=== PATIENT | male | born 1960 | race Caucasian/White ===

== ENCOUNTER 2017-07-15 12:46 | Emergency (ER) | payer BC, SELFPAY ==
[2017-07-15] VITALS (7 sets, daily range): BP systolic 107–117; BP diastolic 73–88; PULSE 56–72; RESP 15–18; TEMP 37; O2SAT 95–98; BMI 25.2
--- NOTE | 2017-07-15 14:07 | CT_ITS ---
STUDY: CTA CHEST REASON FOR EXAM: Male, 57 years old. Shortness of breath. History of pulmonary embolism. RADIATION DOSAGE (If Supplied By Facility): CTDIvol = ( 11.77 ) mGy, DLP = ( 343.50 ) mGycm TECHNIQUE: The examination was performed with the intravenous administration of 100 ml of Isovue 370 contrast material. Post-processing of the angiographic images was performed, with multiplanar reformation and 3D reconstruction. Individualized dose optimization techniques were used for this CT. COMPARISON: 09/15/2015 FINDINGS: Normal enhancement of the main pulmonary artery and right and left pulmonary arteries. Normal enhancement of the bilateral peripheral pulmonary arteries. There is no demonstrated pulmonary embolism. Normal thoracic aorta and visualized great vessels. There is no demonstrated aortic dissection. Normal heart and pericardium. Normal mediastinum. Normal hilar regions. Normal visualized trachea and bronchi. The lungs are well expanded. Mild bibasilar airspace disease is noted, likely mild atelectasis and/or scarring. Similar in appearance to the exam from 2015. No acute airspace disease. No evidence of pulmonary nodules or masses. Normal pleura. Normal chest wall structures. Normal osseous structures. Normal visualized upper abdomen. CT/CTA Chest W/WO Contrast IMPRESSION: Normal CTA chest examination, without a demonstrated pulmonary embolism or arterial dissection. Stable bibasilar scarring. No acute airspace disease. Electronically Signed: Cristo Hager DO at 16:10 EST Tel , Service support ,
--- NOTE | 2017-07-15 14:08 | EKG12_ITS ---
Test Reason : SOB Blood Pressure : / mmHG Vent. Rate : 065 BPM Atrial Rate : 065 BPM P-R Int : 160 ms QRS Dur : 090 ms QT Int : 402 ms P-R-T Axes : 049 -22 021 degrees QTc Int : 418 ms Normal sinus rhythm Normal ECG Confirmed by KALYANI GUZMAN, DENNYS ([id number]), medical transcription editor SUSI ANGULO ([id number]) on 07/16/2017 2:28:10 PM Referred By: DORIE Confirmed By:DENNYS AUGUSTE MD
--- NOTE | 2017-07-15 15:16 | ED.DCSUM_ITS ---
- ER Visit Summary Date of Service: 07/15/17 Chief Complaint: Shortness of breath History of Present Illness: The patient is a 57 M with shortness of breath that started gradually over the past week. He has a history of PE. He is not currently on blood thinners and was concerned for recurrent PE. He also reports some abdominal cramping and bloating. He has a history of Crohn's disease. Physical Examination: Vital signs unremarkable. Afebrile. Nontoxic and in no acute distress. Skin appears normal. Heart regular. Lungs clear. Abdomen soft and nontender. Extremities nontender. No swelling. Test Results: EKG showed sinus rhythm at a rate of 65. No sign of acute ischemia or infarction pattern. Laboratory studies and imaging are pending at the time of this dictation. Emergency Department Course and Treatment: EKG as above. CT chest showed no evidence of PE or dissection. He has stable chronic changes. CMP, BMP, troponin unremarkable. Nothing to explain his symptoms. It also does not appear consistent with a Crohn's flare, PE, or any other cardiac abnormalities. I believe the patient is appropriate for outpatient follow-up. He should return for any new or worsening symptoms. He was given a prescription for Zofran if he should need it. Treatment Plan: As above Disposition: Discharged Impression: 1. Dyspnea 2. Abdominal pain This note was generated with [employer] dictation software. It may contain incorrect words, spelling, and punctuation that were not noted in review of the chart prior to signing ED Disposition - Plan for ED Patient: Chief Complaint: Shortness of Breath Referrals: Devon Esteban MD [Primary Care Provider] -
[2017-07-15 15:22] LABS: Absolute Lymphocyte Count 1.16 X10^3/ul (0.83-4.51); Absolute Neutrophil Count 2.9 X10^3/uL (2.0-7.7); Basophil# 0.01 X10^3/uL; Basophil% 0.2 % (0-1); Eosinophil# 0.08 X10^3/uL; Eosinophils% 1.7 % (0-5); Hematocrit 44.2 % (40-54); Hemoglobin 14.8 g/dl (13.0-16.5); Lymphocyte # 1.16 X10^3/ul (4.0); Lymphocyte % 25.1 % (19-41); Mean Corp Hgb Conc 33.5 g/gl (32-36); Mean Corpuscular Hgb 29.6 pg (27.0-32.0); Mean Corpuscular Volume 88.4 fL (80-94); Mean Platelet Vol. 10.1 fl (6.2-12.0); Monocyte# 0.45 X10^3/uL; Monocyte% 9.7 % (0-10); Neutrophil # 2.92 X10^3/uL (2.7-7.7); Neutrophil % 63.1 % (47-70); POSITIVE COUNT NO; POSITIVE DIFFERENTIAL NO; POSITIVE MORPHOLOGY NO; Platelet Count 239 K/mm3 (150-450); White Blood Count 4.6 K/mm3 (4.4-11.0)
[2017-07-15 15:28] LABS: Anion Gap 8 (5-15); BUN 19 mg/dL (7-18); Calcium,Total 8.8 mg/dL (8.5-10.1); Chloride 106 mmol/L (98-107); Creatinine, Serum 0.95 mg/dL (0.70-1.30); EST Glomerular Filtration Rate 86 mL/min (>60); Est Glom Filt Rate - Afr Amer 104 mL/min (>60); Estimated Creatinine Clearance 76.49 ml/min; Glucose 118 mg/dL (74-106); Potassium 3.6 mmol/L (3.5-5.1); Sodium Level 140 mmol/L (136-145)
[2017-07-15] MEDS: 0.9% Normal Saline 1,000 ML 1000 ML IV (15:59)
--- NOTE | 2017-07-15 16:27 | ED.DEP ---
ED Disposition - Plan for ED Patient: Chief Complaint: Shortness of Breath Instructions: Discharge Instructions for Crohn's Disease Prescriptions: Ondansetron [Zofran Odt] 4 mg PO Q8H PRN PRN #10 tab PRN Reason: Nausea Referrals: Devon Esteban MD [Primary Care Provider] -
== END 2017-07-15 17:21 | disposition home or self-care (01) ==
PROVIDERS: Emergency Provider Emergency Medicine; Family Provider Family Medicine; PCP Family Medicine
DX: R06.00 Dyspnea, unspecified (principal); R10.9 Unspecified abdominal pain; R14.0 Abdominal distension (gaseous); R11.0 Nausea; J45.909 Unspecified asthma, uncomplicated; K50.90 Crohn's disease, unspecified, without complications; Z86.711 Personal history of pulmonary embolism; Z79.899 Other long term (current) drug therapy
CPT/HCPCS: 71275; 80048; 84484; 85025; 93005; 99284; J7030; A4216

== ENCOUNTER 2018-04-03 18:36 | Emergency (ER) | payer BC, SELFPAY ==
[2018-04-03 18:36] VITALS: BP 114/85; PULSE 57; RESP 16; TEMP 36.3; O2SAT 98; BMI 25.0
--- NOTE | 2018-04-03 18:39 | RAD_ITS ---
STUDY: X-RAY - RIGHT HAND REASON FOR EXAM: Male, 58 years old. Injury and pain TECHNIQUE: Three view(s) of the hand were obtained. COMPARISON: None. FINDINGS: Bones: There are no acute osseous abnormalities. Joints: The visualized joints are unremarkable. Soft tissues: There is mild soft tissue swelling. Foreign body: None RAD/Hand Min 3 Views IMPRESSION: No acute osseous abnormalities are seen in the right hand. Electronically Signed: Samina Lucio MD at 19:44 EST Tel Direct: [phone], Service support ,
--- NOTE | 2018-04-03 19:48 | ED.DCSUM_ITS ---
- ER Visit Summary Date of Service: 04/03/18 Chief Complaint: Crush injury right hand History of Present Illness: The patient is a 58 M right hand injury a week ago at home. Crush injury between a log splitter and a log. Pain since. Using Tylenol. History of Crohn's. Came for evaluation rule out fracture. No paresthesias. Physical Examination: General: Alert and oriented ?3, no acute distress HEENT: Normocephalic, atraumatic. Moist mucosa membranes Neck: supple, nontender. Cardiovascular: Regular rate and rhythm, no murmurs Respiratory: Normal breath sounds, symmetric, no distress Abdomen: Soft, nontender, nondistended Extremities: Nontender, no edema, pulses intact ?4. Right upper extremity: There is mild swelling dorsal hand along left first and second metacarpals. No deformities. No pinpoint tenderness. Skin intact. No ecchymosis. Neuro: no focal neurological deficits. Test Results: Right hand x-ray negative for fracture. Emergency Department Course and Treatment: X-ray negative. Discussed with patient continue Tylenol monitoring symptoms. Requests work note release back to work. Treatment Plan: [] Disposition: Discharge Impression: Right hand contusion This note was generated with [employer] dictation software. It may contain incorrect words, spelling, and punctuation that were not noted in review of the chart prior to signing ED Disposition - Plan for ED Patient: Disposition: Home or Assisted Living Chief Complaint: Upper Extremity Injury Diagnosis: Contusion of right hand, initial encounter Instructions: ED Contusion Upper Ext Referrals: Devon Esteban MD [Primary Care Provider] - 5-7 Days
[2018-04-03 20:12] VITALS: BP 115/74; PULSE 62; RESP 14; O2SAT 98
== END 2018-04-03 20:18 | disposition home or self-care (01) ==
PROVIDERS: Emergency Provider Emergency Medicine; Family Provider Family Medicine; PCP Family Medicine
DX: S60.221A Contusion of right hand, initial encounter (principal); S67.21XA Crushing injury of right hand, initial encounter; W23.0XXA Caught, crushed, jammed, or pinched between moving objects, initial encounter; Y93.9 Activity, unspecified; Y92.9 Unspecified place or not applicable; K50.90 Crohn's disease, unspecified, without complications; Z79.899 Other long term (current) drug therapy
CPT/HCPCS: 73130; 99282

== ENCOUNTER 2018-05-15 07:22 | Emergency (ER) | payer BC, SELFPAY ==
[2018-05-15 07:26] VITALS: BP 115/86; PULSE 67; RESP 14; TEMP 36.8; O2SAT 94; BMI 24.6
[2018-05-15] MEDS: 0.9% Normal Saline 1,000 ML 1000 ML IV (07:53)
[2018-05-15] MEDS: proMETHazine 25 MG/ML Syringe 6.25 MG IV (07:54)
--- NOTE | 2018-05-15 08:02 | ED.DCSUM_ITS ---
- ER Visit Summary Date of Service: 05/15/18 Chief Complaint: Nausea and vomiting History of Present Illness: The patient is a 58 M with nausea and vomiting that started yesterday at work. He has been vomiting about every 2-3 hours. No blood. No pain. He had a normal bowel movement this morning. His last emesis was about 4 hours ago. He continues to feel nauseated. He has a history of Crohn's and IBS. He denies any abdominal pain or Crohn's symptoms. Denies chest pain or shortness of breath. He has had some chills and a subjective fever. He has been compliant with his medications. Physical Examination: Afebrile and vital signs unremarkable. Alert and oriented. No acute distress. Sitting comfortably. HEENT exam unremarkable. Heart regular rate and rhythm. Lungs clear in all dolan. Abdomen soft and nontender. No guarding or rebound. Skin appears normal in color without jaundice, rash, or pallor. Test Results: Labs pending Emergency Department Course and Treatment: Patient treated with fluids and Phenergan while awaiting results. CBC normal. Glucose 112 and BUN 22. Hepatic panel and lipase normal. On reevaluation, the patient is sleepy. No further nausea or vomiting. No new pain or new symptoms. I am not sure what is causing his symptoms, but his vital signs, symptoms, exam, and labs are reassuring. At this time, will recommend outpatient treatment with Phenergan. Stay rested and hydrated. Return for intractable vomiting, pain, new or worsening symptoms right away. Otherwise, follow-up with primary care. Treatment Plan: As above Disposition: Discharge Impression: 1. Nausea and vomiting This note was generated with [employer] dictation software. It may contain incorrect words, spelling, and punctuation that were not noted in review of the chart prior to signing ED Disposition - Plan for ED Patient: Chief Complaint: Nausea/Vomiting Referrals: Devon Esteban MD [Primary Care Provider] -
[2018-05-15 08:16] LABS: Absolute Lymphocyte Count 0.57 X10^3/ul (0.83-4.51); Absolute Neutrophil Count 4.1 X10^3/uL (2.0-7.7); Basophil# 0.01 X10^3/uL; Basophil% 0.2 % (0-1); Differential Indicated SCAN CRITERIA MET; Eosinophil# 0.03 X10^3/uL; Eosinophils% 0.6 % (0-5); Hematocrit 46.9 % (40-54); Hemoglobin 15.7 g/dl (13.0-16.5); Lymphocyte # 0.57 X10^3/ul (4.0); Mean Corp Hgb Conc 33.5 g/gl (32-36); Mean Corpuscular Hgb 30.3 pg (27.0-32.0); Mean Corpuscular Volume 90.5 fL (80-94); Mean Platelet Vol. 9.4 fl (6.2-12.0); Monocyte# 0.52 X10^3/uL; Neutrophil # 4.06 X10^3/uL (2.7-7.7); POSITIVE COUNT NO; POSITIVE DIFFERENTIAL YES; POSITIVE MORPHOLOGY NO; Platelet Count 217 K/mm3 (150-450); RBC Distribution Width CV 13.5 % (11.6-14.6); RBC Distribution Width SD 44.9 fl (35.1-43.9); Red Blood Count 5.18 M/mm3 (4.6-6.2); White Blood Count 5.2 K/mm3 (4.4-11.0)
[2018-05-15 08:23] LABS: ALB/GLOB Ratio 1.1 RATIO (0.9-2.4); AST(SGOT) 13 U/L (15-37); Alanine Aminotransfer ALT/SGPT 18 U/L (16-61); Albumin, Serum 3.7 g/dL (3.2-5.0); Alkaline Phosphatase 72 U/L (45-117); Anion Gap 8 (5-15); BUN 22 mg/dL (7-18); BUN/Creat Ratio 23.8 RATIO (10-20); Calcium,Total 8.6 mg/dL (8.5-10.1); Chloride 107 mmol/L (98-107); Creatinine, Serum 0.93 mg/dL (0.70-1.30); EST Glomerular Filtration Rate 89 mL/min (>60); Est Glom Filt Rate - Afr Amer 107 mL/min (>60); Estimated Creatinine Clearance 77.18 ml/min; Globulin 3.4 g/dL (2.2-4.2); Glucose 112 mg/dL (74-106); Lipase 83 U/L (73-393); Potassium 3.6 mmol/L (3.5-5.1); Protein, Total 7.1 g/dL (6.4-8.2); Sodium Level 141 mmol/L (136-145)
--- NOTE | 2018-05-15 08:56 | ED.DEP ---
ED Disposition - Plan for ED Patient: Chief Complaint: Nausea/Vomiting Instructions: ED Nausea Vomiting Prescriptions: proMETHazine tablet [Phenergan] 25 mg PO Q6H PRN PRN #10 tab PRN Reason: Nausea Referrals: Devon Esteban MD [Primary Care Provider] -
[2018-05-15 09:03] VITALS: BP 105/72; PULSE 57; RESP 16; O2SAT 97
== END 2018-05-15 09:12 | disposition home or self-care (01) ==
PROVIDERS: Emergency Provider Emergency Medicine; Family Provider Family Medicine; PCP Family Medicine
DX: R11.2 Nausea with vomiting, unspecified (principal); J45.909 Unspecified asthma, uncomplicated; K50.90 Crohn's disease, unspecified, without complications; K58.9 Irritable bowel syndrome, unspecified; Z86.711 Personal history of pulmonary embolism; Z87.19 Personal history of other diseases of the digestive system; Z79.899 Other long term (current) drug therapy; Z87.891 Personal history of nicotine dependence
CPT/HCPCS: 80053; 83690; 85025; 96361; 96374; 99283; J7030; A4216

== ENCOUNTER → 2018-05-22 17:27 | Outpatient (CLI) | payer BC, SELFPAY ==
[2018-05-15 07:26] VITALS: BMI 24.6
[2018-05-22 18:03] LABS: D-Dimer Quantitative (DVT/PE) 0.49 FEU/ug/m (0.27-0.49)
== END ==
PROVIDERS: Family Provider Family Medicine; PCP Family Medicine; Referring Provider Family Medicine; Visit Provider Family Medicine
DX: J32.9 Chronic sinusitis, unspecified (principal); B96.89 Other specified bacterial agents as the cause of diseases classified elsewhere; R06.02 Shortness of breath
CPT/HCPCS: 36415; 85379

== ENCOUNTER → 2018-08-07 13:47 | Outpatient (CLI) | payer BC, SELFPAY ==
[2018-08-07 14:12] LABS: D-Dimer Quantitative (DVT/PE) 0.39 FEU/ug/m (0.27-0.49)
== END ==
PROVIDERS: Family Provider Family Medicine; PCP Family Medicine; Referring Provider Family Medicine; Visit Provider Family Medicine
DX: J32.9 Chronic sinusitis, unspecified (principal); B96.89 Other specified bacterial agents as the cause of diseases classified elsewhere; R06.02 Shortness of breath
CPT/HCPCS: 85379

== ENCOUNTER 2019-08-01 16:13 | Emergency (ER) | payer OTHER, SELFPAY ==
[2019-08-01 16:15] VITALS: BP 121/84; PULSE 76; RESP 16; TEMP 36.8; O2SAT 94; BMI 26.6
[2019-08-01 16:18] VITALS: O2SAT 93
--- NOTE | 2019-08-01 16:46 | ED.DCSUM_ITS ---
History of Present Illness Chief Complaint: Cold Sx Informant: Patient, Significant Other Narrative: Patient woke developed a dry cough. Friday nasal congestion drainage frontal headache then developed sore throat. He denies any fevers. Today he had yellow drainage of both the eyes. He was seen at [facility] and was given a prescription for tapering prednisone. He does have a history of asthma takes Flovent and albuterol. states his pulse ox at times has been 89-90 and other times mid 90s. States that they discussed with her primary care doctor because of his reported oxygen levels sent him to the emergency room. Past Medical History - Allergies and Home Meds Allergies/Adverse Reactions: Allergies amoxicillin Allergy (Verified 08/01/19 16:24) Rash NSAIDS (Non-Steroidal Anti-Inflamma Adverse Reaction (Verified 08/01/19 16:24) Bleeding Primary Care Physician: Dveon Esteban MD [Primary Care Provider] - Surgical History: - - recent egd and colonoscopy Smoking Status: Former smoker - Family History Paternal Family History: Reports: DVT Review of Systems General: Denies: Chills, Fever, Sweats Eyes: Reports: - - Patient reports bilateral eye drainage that is yellow similar to his nasal drainage. states that his eyes are puffy.. Denies: Visual changes - bilaterally, Diplopia ENT: Reports: Rhinorrhea, Sore throat Cardiovascular: Denies: Chest pain, Palpitations Respiratory: Reports: Cough, Sputum. Denies: Dyspnea, Dyspnea on exertion Gastrointestinal: Denies: Abdominal pain, Nausea, Vomiting, Diarrhea, Melena, Hematochezia Genitourinary: Denies: Dysuria, Hematuria, Frequency Musculoskeletal: Denies: Back pain, Extremity Pain Skin: Denies: Rash, Wounds Neurological: Denies: Headache, Weakness, Numbness Physical Exam Vital Signs/Narrative: Vital Signs Temp Pulse Resp BP Pulse Ox 08/01/19 16:15 98.3 F 76 16 121/84 H 94 Inital Vital Signs reviewed: Yes General: Well nourished, Well developed, No Acute Distress Head: Normocephalic, Atraumatic Eyes: Perrl, EOMI, - - No conjunctival injection. ENT: Moist mucous membranes, Nasal congestion, - - Nasal drainage Neck: Supple - There is some pharyngeal erythema. No exudates., Nontender. Negative for: No lymphadenopathy Cardiovascular: Regular rate, Regular rhythm, No murmurs Respiratory: No distress, CTA bilaterally, Chest nontender Abdomen: Soft, Nontender, Nondistended, Normal bowel sounds Back: Nontender, Normal Inspection Extremities: Nontender, No edema Skin: Normal color, No rash Neurological: Alert, Oriented x3, Cranial nerves II-XII grossly intact, Normal Strength, Normal Sensation Psychological: Normal affect, Normal Mood Diagnostic/Tx/Re-eval - Medical Decision Making Chest x-ray is negative and influenza swab was negative. Patient should continue supportive care treatment and his prednisone. Return if worsening or concerns. ED Disposition - Plan for ED Patient: Disposition: Home or Assisted Living Diagnosis: URI (upper respiratory infection) Instructions: URI, Viral, No Abx (Adult) Referrals: Devon Esteban MD [Primary Care Provider] - As Needed
--- NOTE | 2019-08-01 16:50 | RAD_ITS ---
STUDY: X-RAY CHEST REASON FOR EXAM: Male, 59 years old. cough and shortness of breath x 3 days TECHNIQUE: PA and lateral views of the chest. COMPARISON: 09/15/2015 FINDINGS: The lungs are clear and expanded. There is no demonstrated pleural abnormality. Normal size heart. Normal mediastinum and phi. Normal visualized pulmonary arteries. Normal visualized aortic arch and descending thoracic aorta. Normal visualized thoracic spine. Normal visualized ribs, clavicles, and shoulders. There is no demonstrated abnormality of the visualized soft tissue structures of the upper abdomen. RAD/Chest PA and Lateral IMPRESSION: Normal x-ray examination of the chest. Electronically Signed: Song Leal MD at 17:01 EDT Tel , Service support ,
[2019-08-01 17:03] VITALS: PULSE 67; RESP 18
[2019-08-01] MEDS: Ipratropium/Albuterol Sulfate 3 ML AMPUL.NEB INHALATION (17:03)
[2019-08-01 18:07] VITALS: BP 119/72; PULSE 75; RESP 19; O2SAT 92
== END 2019-08-01 18:07 | disposition home or self-care (01) ==
PROVIDERS: Emergency Provider Emergency Medicine; PCP Family Medicine
DX: J06.9 Acute upper respiratory infection, unspecified (principal); J45.909 Unspecified asthma, uncomplicated; Z87.891 Personal history of nicotine dependence
CPT/HCPCS: 71046; 87804; 94640; 99282

== ENCOUNTER 2020-01-14 08:00 | Outpatient (RCR) | payer OTHER, SELFPAY ==
--- NOTE | 2020-01-14 14:59 | HP.PTEVAL ---
Patient's Visit Information HEATHER VALDEZ is a 59 year old M referred to Physical Therapy by Dr. Devon Esteban MD with a diagnosis of L shoulder pain. Date of Evaluation: 12/31/19 Physical Therapist: Lawrence Kaufman DPT - Visit Plan Frequency: 2x /Week Duration: 4 Weeks - Subjective Pt. is here today for his initial evaluation with diagnosis of L shoulder pain. Pt. reports having pain for a few weeks in his L arm and neck. Pt. reports using his weed eater for 2 1/2 hours and the next day having increased pain. He has been having increased L shoulder N/T at week that does extend down his arm to his hand at times. Pt. did have a chiropractor friend who had been helping him some as well. Pt. is sleeping okay, but has his increased symptoms when he is standing at rest. Decreased pain: stretching, staying active. Increases symptoms: standing still. Pt. 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 Pt. is hopeful to reduce symptoms in order to get back to all recreational and work activities without limitations. - Pain L shoulder Pain Intensity (Out of 10): 3 Pain Intensity Range: 0, 6 L side of neck Pain Intensity (Out of 10): 2 Pain Intensity Range: 0, 4 - Objective POSTURE: Pt. has decent posture in stance. Pt. has slight lateral R head positioning. Good thoracic posture. PALPATION: Pt. has increased tenderness along L UT, L levator scap. No pain along cervcial erector spinea. Pt. has no pain along L RTC origin or insertion. NEURO: Pt. has normal sensation and DTR of B UEs. ROM: CERVICAL SPINE: flexion- nil loss, extension min loss, rotation R- min loss, rotation L min/mod loss. L shoulder- full without increase in symptoms. MMT: Pt. has good strength thruoghout BUEs and cervical spine isometrics. Pt. has no pain with UE testing. 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 Pt. had no pain with testing today. - Special Tests C/S Radiculapathy - Left Spurlings: Positive C/S Radiculapathy - Right Spurlings: Negative C/S Radiculapathy - Left Cervical distraction: Negative C/S Radiculapathy - Right Cervical distraction: Negative C/S Radiculapathy - Left Relief test: Positive C/S Radiculapathy - Right Relief test: Negative Sharp Lucian: Negative Vertebral Artery Test: Negative Alar Ligament Test: Negative Cervical Sitting: Protrusion - Mechanical Response: No effect Cervical Sitting: Protrusion - Symptoms During Testing: Increases Cervical Sitting: Protrusion - Symptoms After Testing: No worse Cervical Sitting: Retraction - Mechanical Response: No effect Cervical Sitting: Retraction - Symptoms During Testing: Decreases Cervical Sitting: Retraction - Symptoms After Testing: Better Cervical Sitting: Sidebend Right - Mechanical Response: No effect Cervical Sitting: Sidebend Right - Symptoms During Testing: Decreases Cervical Sitting: Sidebend Right - Symptoms After Testing: No better - Goals Goal 1:: LTG: Pt. to be I with HEP. Goal Time Frame: 4-6 Weeks Goal 2:: STG: Pt. to have full cervical spine ROM without increase in symptoms. Goal Time Frame: 2-4 Weeks Goal 3:: LTG: Pt. to resume all work related activities without increase in symptoms. Goal Time Frame: 4-6 Weeks Goal 4:: LTG: Pt. to have reduced N/T in LUE by 50%. Goal Time Frame: 4-6 Weeks Goal 5:: LTG: Pt. to be educated in prophalxis techniques to reduce risk for future symptom return Goal Time Frame: 4-6 Weeks - Rehabilitation Potential Physical Therapy Diagnosis: Pt. has signs and symptoms consistent with L shoulder, but appears to be radiating from his neck from testing today. Pt. has N/T in his L arm to his fingers that did alleviate with cervical ROM and distraction. He had no exaccerbation of symptoms with LUE mobility. Pt. would benefit from PT to work on his neck ROM, work on cervical retraction, levat scapulea tension reduction and symptom management. Rehabilitation Potential: Excellent - Anticipated Interventions Patient/Client Instruction: Educate patient on: Condition, Plan of Care, Risk Factors, Benefits of Fitness Program For the Purpose of:: To foster healthy habits, To improve decision making, To facilitate caregiver knowledge, To improve self management, To prevent re-injury, To improve ability to perform tasks related to life management, To improve tolerance to ADL's Therapeutic Exercise to Include: Strength training, Power training, Body mechanics, Postural training, Flexibilty training, Passive ROM, Active ROM, Sky Exercises, Scapular Strength/Stabilization For the Purpose of:: To decrease pain, To decrease swelling/inflammation, To increase ROM, To improve nutrient delivery to tissue, To increase oxygenation perfusion, To improve muscle performance and motor function, To improve ability to perform ADL's, To increase flexibility/ROM Manual Therapy Techniques to Include: Mobilization, Functional dry needling, Soft tissue mobilization For the Purpose of:: To decrease pain, To decrease swelling/inflammation, To increase ROM, To improve nutrient delivery to tissue, To improve muscle performance and motor function Thank you for the opportunity to evaluate your patient. For Medicare and Medicare HMO plans, please review the plan of care and approve it. It will need to be FAXED BACK to us at [phone] for Medicare purposes. For Medicare only, by signing this I certify the plan of care. Please let me know if there are questions or concerns regarding this plan of care. Physician Signature: Date:
--- NOTE | 2020-01-14 15:16 | HP.PTREVAL_ITS ---
Dr. Devon Esteban MD, It has been my pleasure to treat HEATHER VALDEZ over the last 2 visits for L shoulder pain. Please see the progress note below for an update on the physical therapy plan of care! Subjective: Pt. reports I am doing great. I really don't have much tingling, just occassionally. Some sight soreness in my neck, but nothing that bad. Objective/Function: Pt. is doing very well with his symptoms. pt. has good UE and cervical spine strength. He does not have any tingling today. Pt. tolerated all movements well. Pt. is to continue with the above exercises for HEP. Plan Plan: Pt. is doing well with all exercises. He is to trial the exercises for 2-3 weeks and call back if needed. Pt. able to come in sooner if needed. If I do not hear from him in this time frame I will DC back to physician. Goals Goal 1:: LTG: Pt. to be I with HEP. Goal Time Frame: 4-6 Weeks Goal 2:: STG: Pt. to have full cervical spine ROM without increase in symptoms. Goal Time Frame: 2-4 Weeks Goal 3:: LTG: Pt. to resume all work related activities without increase in symptoms. Goal Time Frame: 4-6 Weeks Goal 4:: LTG: Pt. to have reduced N/T in LUE by 50%. Goal Time Frame: 4-6 Weeks Goal 5:: LTG: Pt. to be educated in prophalxis techniques to reduce risk for future symptom return Goal Time Frame: 4-6 Weeks Anticipated Interventions Patient/Client Instruction: Educate patient on: Condition, Plan of Care, Risk Factors, Benefits of Fitness Program For the Purpose of:: To foster healthy habits, To improve decision making, To facilitate caregiver knowledge, To improve self management, To prevent re- injury, To improve ability to perform tasks related to life management, To improve tolerance to ADL's Therapeutic Exercise to Include: Strength training, Power training, Body mechanics, Postural training, Flexibilty training, Passive ROM, Active ROM, Sky Exercises, Scapular Strength/Stabilization For the Purpose of:: To decrease pain, To decrease swelling/inflammation, To increase ROM, To improve nutrient delivery to tissue, To increase oxygenation perfusion, To improve muscle performance and motor function, To improve ability to perform ADL's, To increase flexibility/ROM Manual Therapy Techniques to Include: Mobilization, Functional dry needling, Soft tissue mobilization For the Purpose of:: To decrease pain, To decrease swelling/inflammation, To increase ROM, To improve nutrient delivery to tissue, To improve muscle performance and motor function Please do not hesitate to contact me at [phone] by phone or if you have questions or concerns regarding this new plan of care! Sincerely, BILL RichardsonT
== END 2020-01-14 19:00 | disposition home or self-care (01) ==
LOC: PT 08:00
PROVIDERS: PCP Family Medicine; Visit Provider Family Medicine
DX: M25.519 Pain in unspecified shoulder (principal); G89.29 Other chronic pain
CPT/HCPCS: 97110; 97140; 97161

== ENCOUNTER 2021-02-09 16:33 | Outpatient (CLI) | payer OTHER, SELFPAY ==
[2021-02-09] MEDS: 0.9% Saline Lock 10 ML Syringe IV (17:00)
[2021-02-09 17:03] VITALS: BP 104/65; PULSE 77; TEMP 37; O2SAT 94; BMI 24.2
[2021-02-09 17:35] VITALS: BP 112/72; PULSE 74; RESP 16; TEMP 36.8; O2SAT 96
[2021-02-09 18:30] VITALS: BP 114/70; PULSE 64; RESP 16; TEMP 37.1; O2SAT 97
== END 2021-02-09 18:30 | disposition home or self-care (01) ==
LOC: ICUOUT 16:33 → MS3 16:34
PROVIDERS: PCP Family Medicine; Referring Provider Nurse Practitioner Adult Health; Visit Provider Nurse Practitioner Adult Health
DX: Z23 Encounter for immunization (principal); U07.1 COVID-19
CPT/HCPCS: J7050; M0243; A4216; Q0244

== ENCOUNTER 2021-05-21 06:52 | Outpatient (CLI) | payer OTHER, SELFPAY ==
--- NOTE | 2021-05-21 15:01 | PFTCOMP_ITS ---
COMPLETE PULMONARY FUNCTION TEST INTERPRETATION Brief HPI: Patient is a 61 year old male, currently under the care of myself, who presents to [facility] for complete pulmonary function tests secondary to diagnosis of dyspnea. Respiratory therapist reports good effort and reproducible results. Interpretation: Forced expiration spirometry shows no large airways obstructive ventilatory defect with an FEV1 of 91% predicted. There is no significant bronchodilator response by strict ATS criteria. Spirograms are of good quality and plateau slowly, indicating slowly emptying areas of the lungs. The respiratory flow volume loop shows decreased expiratory flow rates at high lung volumes con sistent with small airways obstruction. Lung volumes by body plethysmography show a decreased total lung capacity at 4.21 L, 74% predicted. All other lung volumes are reduced symmetrically. Diffusion capacity by carbon monoxide is normal at 99% predicted. The airway resistance is slightly elevated. No previous pulmonary function tests were available for review. Impression: Mild restrictive ventilatory defect with preserved diffusion capacity in a pattern consistent with musculoskeletal limitation
== END 2021-05-21 23:59 | disposition short-term general hospital (02) ==
LOC: PSN 06:55
PROVIDERS: PCP Family Medicine; Referring Provider Internal Medicine Critical Care Medicine; Visit Provider Internal Medicine Critical Care Medicine
DX: J45.909 Unspecified asthma, uncomplicated (principal)
CPT/HCPCS: 94060; 94726; 94729

== ENCOUNTER 2021-08-12 16:42 | Emergency (ER) | payer OTHER, SELFPAY ==
[2021-08-12 16:43] VITALS: BP 113/76; PULSE 70; RESP 16; TEMP 35.7; O2SAT 96; BMI 25.4
--- NOTE | 2021-08-12 16:57 | CT_ITS ---
EXAM: CT ABDOMEN AND PELVIS WITH INTRAVENOUS CONTRAST CLINICAL INDICATION: hematuria, abdominal pain TECHNIQUE: Helically acquired images were obtained of the abdomen and pelvis with intravenous contrast. This CT exam was performed using one or more of the following dose reduction techniques: automated exposure control, adjustment of the mA and/or kV according to patient size, and/or use of iterative reconstruction technique. This report was created using [employer] report generation technology. CONTRAST: IV 100mL Isovue-370 COMPARISON: 09/01/2015. FINDINGS: LOWER THORAX: Unremarkable. Lung bases are clear. No cardiomegaly. No significant pericardial effusion. ABDOMEN: LIVER: 0.7 cm low-attenuation lesion in the lateral segment, too small to characterize. The liver is otherwise unremarkable. GALLBLADDER AND BILE DUCTS: Unremarkable. No calcified gallstones. No gallbladder distention or wall edema. No intra- or extrahepatic biliary ductal dilation. PANCREAS: Unremarkable. No focal cystic or solid mass. SPLEEN: Unremarkable. Normal size without focal cystic or solid mass. ADRENALS: Unremarkable. No nodules. KIDNEYS AND URETERS: Unremarkable. Normal renal size and position. No hydronephrosis. STOMACH AND BOWEL: Diverticulosis, no acute diverticulitis. No stomach or bowel distention. PELVIS: APPENDIX: No evidence of acute appendicitis. BLADDER: Unremarkable. REPRODUCTIVE: Unremarkable as visualized. No mass. ABDOMEN and PELVIS: INTRAPERITONEAL SPACE: Unremarkable. No ascites or other fluid collection. No free air. BONES/JOINTS: Bilateral L5 spondylolysis with grade 1 spondylolisthesis. No suspicious lytic or blastic abnormality. SOFT TISSUES: Unremarkable. No discrete abdominal or pelvic wall hernia. VASCULATURE: Unremarkable. Abdominal aorta is normal in caliber. LYMPH NODES: Unremarkable. No enlarged lymph nodes. CT/Abdomen/Pelvis W IV Cont ONLY IMPRESSION: No acute findings. Diverticulosis, no acute diverticulitis. Hepatic hypodensity too small to characterize. Follow-up is not indicated per ACR guidelines. Electronically Signed: Luly Tuttle MD at 20:40 EDT Reading Location ID and State: [id number] / Tel , Service support ,
--- NOTE | 2021-08-12 16:58 | EX.ED.GUMALE ---
HPI History of Present Illness Chief Complaint: Complaint Detail of Chief Complaint: Hematuria that started today Informant: patient Narrative Narrative: Patient presents to the emergency department complaint of hematuria that started today. Patient gives history that he had upper respiratory infection that started about 10 days ago. Patient was seen at urgent care and had a negative COVID test 1 week ago and was started on prednisone. Patient continues to cough and at times bringing up some yellow sputum. Patient states that 4 days ago he developed what he thought was a stomach bug where he started vomiting. A coworker also had stomach flu with vomiting and diarrhea recently. Patient had been in bed and today was the first time he had eaten a couple of days. Patient went to use the restroom and when he urinated he passed blood and some small clots. He denies significant abdominal pain currently but on the way to the hospital had some twinge of pain in the left upper quadrant. Patient has history of Crohn's. Patient not on blood thinners. Patient does complain of some urinary frequency. Prior similar symptoms: No PFSH PFSH Medical History (Updated 08/12/21 @ 20:[address] Milla Reyes, ) Bronchitis GERD (gastroesophageal reflux disease) Peptic ulcer disease Home Medications tamsulosin 0.4 mg PO DAILY 06/26/14 [History Last Taken 07/15/17] albuterol sulfate [Proventil HFA] 2 puff IH Q4H PRN 08/15/15 [History Last Taken Unknown] pantoprazole 40 mg PO DAILY 09/01/15 [History Last Taken 07/15/17] multivitamin [Daily Multiple] 1 ea PO DAILY 09/15/15 [History Last Taken 07/15/17] Lactobacillus acidophilus [Probiotic] 1 ea PO DAILY 05/15/18 [History Last Taken Unknown] budesonide 9 mg PO DAILY 05/15/18 [History Last Taken Unknown] citalopram 20 mg PO DAILY 05/15/18 [History Last Taken Unknown] inulin [Fiber Gummies] 2 g PO DAILY 05/15/18 [History Last Taken Unknown] mesalamine 2.4 g PO DAILY 05/15/18 [History Last Taken Unknown] aspirin [Baby Aspirin] 81 mg PO DAILY 02/09/21 [History Last Taken Unknown] fluticasone propionate 220 mcg/actuation HFA aerosol inhaler 1 puff INHALATION BID #3 device 05/17/21 [Rx Last Taken Unknown] cholecalciferol (vitamin D3) [Vitamin D3] 25 mcg PO DAILY 08/12/21 [History Last Taken Unknown] ondansetron 4 mg PO Q8H PRN PRN #10 tab 08/12/21 [Rx Last Taken Unknown] sulfamethoxazole-trimethoprim 1 tab PO BID #14 tablet 08/12/21 [Rx Last Taken Unknown] Allergy/AdvReac Type Severity Reaction Status Date / Time amoxicillin Allergy Rash Verified 08/12/21 16:43 NSAIDS (Non-Steroidal AdvReac Bleeding Verified 08/12/21 16:43 Anti-Inflamma Family History (Updated 05/17/21 @ 06:49 by Ara Hull) Father Diabetes Dementia Surgical History (Updated 05/17/21 @ 06:45 by Ara Hull) H/O arthroscopic knee surgery Social History (Updated 05/17/21 @ 06:50 by Ara Hull) housing: house pets and animals: Yes pets and animals: dog(s) Smoking Status: Former smoker ROS ROS ED Constitutional Constitutional ED: Reports systems reviewed and no addt'l complaints, except as documented; Denies body ache(s), change in weight or chills Eyes Eyes: Denies acute decrease in peripheral vision, change in vision, double vision or loss of vision ENT ENT ED: Reports none; Denies ear pain, lip swelling, loss taste/smell, neck pain, otalgia or sore throat Cardiovascular Cardiovascular: Reports none; Denies abdominal pain, chest pain with activity, leg edema, lightheadedness, palpitations, rapid heart rate or syncope Respiratory/Chest Respiratory/Chest: Reports none and cough; Denies change in mental status, dry cough, dyspnea, hemoptysis, shortness of breath at rest or shortness of breath with exertion Gastrointestinal Gastrointestinal: Reports none, abdominal pain, nausea and vomiting; Denies change in stool character, diarrhea, hematemesis, hematochezia, melena or rectal bleeding Genitourinary Genitourinary ED: Reports none, hematuria and urinary frequency; Denies abdominal discomfort, anuria, dysuria, genital pain or polyuria Musculoskeletal Musculoskeletal: Reports none; Denies arthralgias, back pain, difficulty walking, extremity pain, muscle weakness or myalgias Integumentary Reports none; Denies abscess or rash Neurologic Neurologic: Reports none; Denies abnormal gait, confusion, focal weakness, frequent falls, headache(s), loss of vision, numbness, paresthesias, radicular pain, vertigo or weakness Psychiatric Psychiatric: Reports systems reviewed and no addt'l complaints, except as documented and none; Denies behavioral changes, confusion, difficulty concentrating, hallucinations, suicidal ideation, tactile hallucinations or visual hallucinations Endocrine Endocrinology: Denies none, cold intolerance, excessive sweating, fatigue or heat intolerance Hematologic/Lymphatic Hematologic/Lymphatic: Reports none; Denies anemia, easy bleeding or easy bruising Allergic/Immunologic Allergic/Immunologic ED: Denies as per HPI, none, lip swelling, mouth swelling, throat swelling, tongue swelling or hives EXAM Physical Exam Const Vital Signs: 08/12/21 16:43 Temperature 96.2 F L Temperature Source Temporal Pulse Rate 70 Respiratory Rate 16 Blood Pressure 113/76 Blood Pressure Mean 88 Pulse Ox 96 Oxygen Delivery Method Room Air Positive well nourished and well developed General Appearance ED: well developed and NAD HEENT Reports TM's clear and moist mucous membranes normocephalic and atraumatic; Negative for trauma or tenderness Tympanic Membrane ED: Yes TM's clear Eyes PERRL and EOMs intact bilaterally General Eye ED: Negative for pale conjunctiva or scleral icterus Neck no lymphadenopathy, supple and no JVD General: Negative for tenderness Chest Wall inspection of chest normal and palpation of chest normal Chest: Negative for tenderness Resp normal respiratory effort and clear to auscultation bilaterally Effort and Inspection: Negative for respiratory distress or pain with movement Auscultation: Negative for rhonchi, wheezes or diminished lung sounds Cardio regular rate, regular rhythm, S1 normal heart sound, S2 normal heart sound and no murmurs Peripheral Pulses: pulses 2+ throughout GI normal to inspection, nondistended, normoactive bowel sounds, soft to palpation, non-tender, non-distended and no masses Back/Spine no CVA tenderness and no thoracic nor lumbar tenderness Extremity normal to inspection General Extremety ED: Negative for edema General Extremity: Negative for edema Neuro oriented x3, CN's II-XII intact bilaterally, no sensory deficits noted and gait normal Sensorium / Orientation: awake, alert, oriented to person, oriented to place and oriented to time Motor Exam: strength 5/5 throughout and strength abnormal Psych mental status grossly normal Skin no rashes or lesions noted and no wounds MDM MDM MDM Narrative Medical decision making narrative: IV line established on arrival. Lab work was essentially unremarkable. His urine was dark and grossly bloody and positive for nitrites as well as greater than 100 RBCs and 5-10 WBCs with +4 bacteria. Patient had [address] scan of the abdomen pelvis with IV contrast was unremarkable. Patient did receive Bactrim DS 1 tablet in the emergency department. I did send off a urine culture. Patient will be started on Bactrim and given a prescription for Zofran for nausea. Patient to follow-up with his primary care physician 3 to 5 days. I suspect hematuria likely related to hemorrhagic cystitis. If his hematuria does not resolve with treatment of the cystitis may require further investigation by urology. Lab Data Attestation: I reviewed the patient's lab results. Labs: Laboratory Results - last 24 hr 08/12/21 08/12/21 08/12/21 17:05 17:05 18:40 WBC 6.3 RBC 5.21 Hgb 15.8 Hct 46.2 MCV 88.7 MCH 30.3 MCHC 34.2 RDW Std Deviation 43.5 RDW Coeff of Vinh 13.2 Plt Count 255 MPV 8.9 Immature Gran % (Auto) 0.300 Neut % (Auto) 68.2 Lymph % (Auto) 21.3 [place] % (Auto) 9.1 Eos % (Auto) 0.8 Baso % (Auto) 0.3 Absolute Neuts (auto) 4.3 Absolute Lymphs (auto) 1.35 Nucleated RBC % 0 Sodium 138 Potassium 3.5 Chloride 104 Carbon Dioxide 27.0 Anion Gap 7 BUN 24 H Creatinine 0.98 Estim Creat Clear Calc 70.53 Est GFR (MDRD) Af Amer 100 Est GFR (MDRD) Non-Af 83 BUN/Creatinine Ratio 24.6 H Glucose 104 Calcium 8.6 Urine Color Brown Urine Clarity Cloudy Urine pH 7.0 Ur Specific Sebastian 1.010 Urine Protein 100 H Urine Glucose (UA) Normal Urine Ketones 15 H Urine Occult Blood 250 H Urine Nitrite Positive H Urine Bilirubin Negative Urine Urobilinogen 1 H Ur Leukocyte Esterase 25 H Urine RBC > 100 SEEN Urine WBC 5-10 SEEN Ur Squamous Epith Cells 0 SEEN Urine Bacteria 4+ Urine Mucus 0 SEEN Radiography Diagnostic Testing: Clinical Impression(s) from Imaging Studies Abdomen/Pelvis CT 08/12/21 16:57 IMPRESSION: No acute findings. Diverticulosis, no acute diverticulitis. Hepatic hypodensity too small to characterize. Follow-up is not indicated per ACR guidelines. Electronically Signed: Luly Tuttle MD at 20:40 EDT , Chest X-Ray 08/12/21 17:35 IMPRESSION: No radiographic evidence of acute cardiopulmonary disease. at 1921 Reported and signed by: Twan Peace MD Electronically Signed: Twan Peace MD at 19:20 EDT , 1 view chest x-ray obtained interpreted by myself no acute disease process. Radiology in agreement. Discharge Plan Triage Chief Complaint: Complaint ED Provider: Milla Reyes Dx/Rx/DC Orders Clinical Impression: Acute hemorrhagic cystitis Instructions: ED Hematuria, ED Bladder Infection, Male (Adult) Prescriptions: New sulfamethoxazole-trimethoprim [sulfamethoxazole-trimethoprim] 1 TABLET tablet 1 tab PO BID Qty: 14 RF: 0 ondansetron [ondansetron] 4 MG tablet 4 mg PO Q8H PRN PRN (Reason: Nausea) Qty: 10 RF: 0 No Action Flovent HFA 220 mcg/actuation HFA aerosol inhaler 1 puff inhalation BID Qty: 3 RF: 3 tamsulosin 0.4 MG capsule 0.4 mg PO DAILY RF: 0 albuterol sulfate [Proventil HFA] 6.7 GM HFA aerosol inhaler 2 puff IH Q4H PRN (Reason: Wheezing) RF: 0 pantoprazole 40 MG tablet 40 mg PO DAILY RF: 0 multivitamin [Daily Multiple] 1 EACH tablet 1 ea PO DAILY RF: 0 citalopram 20 MG tablet 20 mg PO DAILY RF: 0 Probiotic 1 EACH capsule 1 ea PO DAILY RF: 0 budesonide 9 MG tablet,delayed and ext.release 9 mg PO DAILY RF: 0 Fiber Gummies 2 GM tablet,chewable 2 g PO DAILY RF: 0 mesalamine 1.2 GM tablet 2.4 g PO DAILY RF: 0 aspirin [Baby Aspirin] 81 mg Tablet,Chewable 81 mg PO DAILY RF: 0 cholecalciferol (vitamin D3) [Vitamin D3] 25 mcg (1,000 unit) Tablet 25 mcg PO DAILY RF: 0 Primary Care Provider: Devon Esteban Referrals: Devon Esteban MD [Primary Care Provider] - 3-5 Days Disposition Disposition: Home, Self Care
[2021-08-12] MEDS: 0.9% Normal Saline 1,000 ML 150 ML IV (17:07)
[2021-08-12 17:19] LABS: Absolute Lymphocyte Count 1.35 X10^3/uL (0.83-4.51); Absolute Neutrophil Count 4.3 X10^3/uL (2.0-7.7); Basophil# 0.02 X10^3/uL; Basophil% 0.3 % (0-1); Eosinophil# 0.05 X10^3/uL; Eosinophils% 0.8 % (0-5); Hematocrit 46.2 % (40-54); Hemoglobin 15.8 g/dL (13.0-16.5); Lymphocyte # 1.35 X10^3/ul (0.83-4.51); Lymphocyte % 21.3 % (19-41); Mean Corp Hgb Conc 34.2 g/dL (32-36); Mean Corpuscular Hgb 30.3 pg (27.0-32.0); Mean Corpuscular Volume 88.7 fL (80-94); Mean Platelet Vol. 8.9 fl (6.2-12.0); Monocyte# 0.58 X10^3/uL; Monocyte% 9.1 % (0-10); NRBC Flagged by Analyzer 0 % (0-5); Neutrophil # 4.32 X10^3/uL (2.7-7.7); Neutrophil % 68.2 % (47-70); Platelet Count 255 K/mm3 (150-450); RBC Distribution Width CV 13.2 % (11.6-14.6); RBC Distribution Width SD 43.5 fl (35.1-43.9); Red Blood Count 5.21 M/mm3 (4.6-6.2); White Blood Count 6.3 K/mm3 (4.4-11.0)
--- NOTE | 2021-08-12 17:35 | RAD_ITS ---
HISTORY: cough EXAMINATION/TECHNIQUE: XR Chest 1 View: Portable upright AP chest x-ray COMPARISON: 08/01/19 FINDINGS: LINES/DEVICES: None. LUNGS: No consolidation, edema or effusion. No pneumothorax. MEDIASTINUM AND CARDIOVASCULAR STRUCTURES: Cardiac silhouette not enlarged. Central airways and mediastinal contour are unremarkable. BONES AND SOFT TISSUES: No acute bony abnormalities. RAD/Chest 1 View (Portable) IMPRESSION: No radiographic evidence of acute cardiopulmonary disease. at 1921 Reported and signed by: Twan Peace MD Electronically Signed: Twan Peace MD at 19:20 EDT ,
[2021-08-12 17:36] LABS: Anion Gap 7 (5-15); BUN 24 mg/dL (7-18); BUN/Creat Ratio 24.6 RATIO (10-20); Calcium,Total 8.6 mg/dL (8.5-10.1); Chloride 104 mmol/L (98-107); Creatinine, Serum 0.98 mg/dL (0.70-1.30); EST Glomerular Filtration Rate 83 mL/min (>60); Est Glom Filt Rate - Afr Amer 100 mL/min (>60); Estimated Creatinine Clearance 70.53 ml/min; Glucose 104 mg/dL (74-106); Potassium 3.5 mmol/L (3.5-5.1); Sodium Level 138 mmol/L (136-145)
[2021-08-12 18:46] LABS: Mucous, Urine 0 SEEN /hpf (<or=2+); Squamous Epithelial Cells - UA 0 SEEN /hpf (0-5)
[2021-08-12 18:47] LABS: Color, Urine Brown (Yellow); Glucose, Dipstick Normal (Normal); Ketone-Dipstick 15 mg/dl (Negative); Leukocyte Esterase-Dipstick 25 /ul (Negative); Nitrite-Dipstick Positive (Negative); Occult Blood-Urine 250 /ul (Negative); Protein-Dipstick 100 mg/dl (Negative); Urine Bilirubin Dipstick Negative (Negative); Urine Clarity Cloudy (Clear); Urine Urobilinogen 1 mg/dl (Normal)
[2021-08-12 18:58] LABS: Bacteria 4+ /hpf (None Seen); Red Blood Cells-Urine > 100 SEEN /hpf (0-5); White Blood Cells 5-10 SEEN /hpf (0-5)
[2021-08-12] MEDS: Smz/Tmp Ds Tablet 1 TABLET PO (19:21)
[2021-08-12 20:57] VITALS: BP 106/75; PULSE 60; RESP 16; O2SAT 94
== END 2021-08-12 21:03 | disposition home or self-care (01) ==
PROVIDERS: Emergency Provider Emergency Medicine; PCP Family Medicine; Visit Provider Emergency Medicine
DX: N30.01 Acute cystitis with hematuria (principal); K50.90 Crohn's disease, unspecified, without complications; Z87.891 Personal history of nicotine dependence; K21.9 Gastro-esophageal reflux disease without esophagitis; Z87.11 Personal history of peptic ulcer disease; Z79.899 Other long term (current) drug therapy; Z79.52 Long term (current) use of systemic steroids; R05.9 Cough, unspecified
CPT/HCPCS: 71045; 74177; 80048; 81001; 85025; 87086; 87088; 96360; 96361; 99284; J7030; Q9967; A4216

== ENCOUNTER 2023-01-15 20:34 | Emergency (ER) | payer OTHER, SELFPAY ==
[2023-01-15 20:36] VITALS: BP 128/90; PULSE 63; RESP 16; TEMP 36.6; O2SAT 97; BMI 25.7
--- NOTE | 2023-01-15 21:18 | EDS_ITS ---
HPI History of Present Illness Chief Complaint: Laceration Detail of Chief Complaint: Injury to right calf Informant: patient Narrative Narrative: Patient presents with injury to his right calf sustained this evening. 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 Patient up-to-date on tetanus. [facility] Medical History Bronchitis GERD (gastroesophageal reflux disease) Peptic ulcer disease Home Medications tamsulosin 0.4 mg capsule 0.4 mg PO DAILY 06/26/14 [History Last Taken 07/15/17] pantoprazole 40 mg tablet,delayed release 40 mg PO DAILY 09/01/15 [History Last Taken 07/15/17] multivitamin (Daily Multiple tablet) 1 ea PO DAILY 09/15/15 [History Last Taken 07/15/17] Lactobacillus acidophilus 10 billion cell capsule (Probiotic) 1 ea PO DAILY 05/15/18 [History Last Taken Unknown] budesonide 9 mg tablet,delayed and extended release 9 mg PO DAILY 05/15/18 [History Last Taken Unknown] citalopram 20 mg tablet 20 mg PO DAILY 05/15/18 [History Last Taken Unknown] inulin 2 gram chewable tablet (Fiber Gummies) 2 g PO DAILY 05/15/18 [History Last Taken Unknown] mesalamine 1.2 gram tablet,delayed release 2.4 g PO DAILY 05/15/18 [History Last Taken Unknown] aspirin 81 mg chewable tablet 81 mg PO DAILY 02/09/21 [History Last Taken Unknown] cholecalciferol (vitamin D3) 25 mcg (1,000 unit) tablet (Vitamin D3) 25 mcg PO DAILY 08/12/21 [History Last Taken Unknown] ondansetron 4 mg disintegrating tablet 4 mg PO Q8H PRN PRN Nausea #10 tabs 08/12/21 [Rx Last Taken Unknown] sulfamethoxazole 800 mg-trimethoprim 160 mg tablet 1 tab PO BID #14 TABLETS 08/12/21 [Rx Last Taken Unknown] fluticasone propionate 220 mcg/actuation HFA aerosol inhaler (Flovent HFA) 1 puff inhalation BID #3 device 11/09/21 [Rx Last Taken Unknown] albuterol sulfate 90 mcg/actuation aerosol inhaler (Proventil HFA) 2 puff inhalation Q4H PRN Wheezing #8.5 grams 11/20/22 [Rx Last Taken Unknown] cephalexin 500 mg capsule 500 mg PO Q6 #40 CAPSULES 01/15/23 [Rx Last Taken Unknown] Allergy/AdvReac Type Severity Reaction Status Date / Time amoxicillin Allergy Rash Verified 01/15/23 20:39 NSAIDS (Non-Steroidal AdvReac Bleeding Verified 01/15/23 20:39 Anti-Inflamma Family History Father Diabetes Dementia Surgical History H/O arthroscopic knee surgery Social History housing: house pets and animals: Yes pets and animals: dog(s) Smoking Status: Former smoker ROS ROS ED Review of Systems ROS Unobtainable: other Constitutional Constitutional ED: Reports lethargy; Denies chills, fever(s), sweats or weight loss Eyes Eyes: Denies blurry vision, change in vision or diplopia ENT ENT ED: Denies rhinorrhea or sore throat Cardiovascular Cardiovascular: Denies chest pain, orthopnea or racing heartbeat Respiratory/Chest Respiratory/Chest: Denies cough, dyspnea, dyspnea on exertion, orthopnea or sputum Gastrointestinal Gastrointestinal: Denies abdominal pain, diarrhea, nausea or vomiting Genitourinary Genitourinary ED: Denies dysuria, hematuria or urinary frequency Musculoskeletal Musculoskeletal: Reports other Details: Laceration/injury right calf ; Denies arthralgias, back pain, myalgias or neck pain Integumentary Denies abscess, Abrasions or rash Neurologic Neurologic: Denies headache(s) or weakness Psychiatric Psychiatric: Denies anxiety, depression or suicidal thoughts Endocrine Endocrinology: Denies polydipsia, polyphagia or polyuria Hematologic/Lymphatic Hematologic/Lymphatic: Denies easy bleeding, easy bruising or lymphadenopathy Allergic/Immunologic Allergic/Immunologic ED: Denies mouth swelling, tongue swelling or urticaria EXAM Physical Exam Const Vital Signs: 01/15/23 20:36 Temperature 97.9 F Temperature Source Temporal Pulse Rate 63 Respiratory Rate 16 Blood Pressure 128/90 H Blood Pressure Mean 102 Pulse Ox 97 Oxygen Delivery Method Room Air Positive well nourished and well developed General Appearance ED: well developed and NAD HEENT Reports TM's clear and moist mucous membranes normocephalic and atraumatic; Negative for trauma or tenderness Tympanic Membrane ED: Yes TM's clear Eyes PERRL and EOMs intact bilaterally General Eye ED: Negative for pale conjunctiva or scleral icterus Neck no lymphadenopathy, supple and no JVD General: Negative for tenderness Chest Wall inspection of chest normal and palpation of chest normal Chest: Negative for tenderness Resp normal respiratory effort and clear to auscultation bilaterally Effort and Inspection: Negative for respiratory distress or pain with movement Auscultation: Negative for rhonchi, wheezes or diminished lung sounds Cardio regular rate, regular rhythm, S1 normal heart sound, S2 normal heart sound and no murmurs Peripheral Pulses: pulses 2+ throughout GI normal to inspection, nondistended, normoactive bowel sounds, soft to palpation, non-tender, non-distended and no masses Back/Spine no CVA tenderness and no thoracic nor lumbar tenderness Extremity normal to inspection General Extremety ED: Negative for edema General Extremity: Negative for edema Neuro oriented x3, CN's II-XII intact bilaterally, no sensory deficits noted and gait normal Sensorium / Orientation: awake, alert, oriented to person, oriented to place and oriented to time Motor Exam: strength 5/5 throughout and strength abnormal Psych mental status grossly normal Skin no rashes or lesions noted and no wounds Skin Narrative: Right calf-patient has a 5 cm laceration over the right calf is stellate and puncture like. Mild bony tenderness over the fibula. Neurovascular intact distally. No active bleeding. MDM MDM MDM Narrative Medical decision making narrative: Patient with a laceration/puncture wound to the right calf from being gored by a cow. X-rays of the right tib-fib obtained were negative for fracture or dis location on my interpretation and radiology in agreement. Patient was recommended suture repair. Please see procedure note. The puncture wound penetrated to the muscle but did not enter the muscle and remained subcutaneous. No foreign bodies noted within the wound. After repair clean dressing applied. Patient will be started on Keflex empirically. Given first dose in the emergency department. Patient to follow-up with primary care physician in 10 to 14 days for suture removal. He is advised to return if increasing pain, redness, swelling, purulent drainage, or condition worsening way. Radiography Diagnostic Testing: Clinical Impression(s) from Imaging Studies Tibia/Fibula X-Ray 01/15/23 21:30 IMPRESSION: Negative right tibia and fibula x-rays. Electronically Signed: Monty Lou MD at 21:52 EDT , Procedures Lacerations Right calf laceration: Length: 1.97 in Depth: Sub Q Shape: Linear Prep: Sterile Conditions and Shure-Clens Laceration repair: Irrigated, Lidocaine, Local and Skin sutures Irrigated (ml): 100 Number of Sutures/[place]: 7 Suture Information: Ethilon, Simple and 4-0 Discharge Plan Triage Chief Complaint: Laceration ED Provider: Milla Reyes Dx/Rx/DC Orders Clinical Impression: Laceration of right lower leg Instructions: ED Laceration Extremity Prescriptions: New cephalexin [cephalexin] 500 mg capsule 500 mg PO Q6 Qty: 40 0RF No Action Flovent HFA 220 mcg/actuation HFA aerosol inhaler 1 puff inhalation BID Qty: 3 3RF tamsulosin 0.4 MG capsule 0.4 mg PO DAILY Patient Comments: PROSTATE pantoprazole 40 MG tablet 40 mg PO DAILY Patient Comments: GERD multivitamin [Daily Multiple] 1 EACH tablet 1 ea PO DAILY Patient Comments: supplement citalopram 20 MG tablet 20 mg PO DAILY Probiotic 1 EACH capsule 1 ea PO DAILY budesonide 9 MG tablet,delayed and ext.release 9 mg PO DAILY Fiber Gummies 2 GM tablet,chewable 2 g PO DAILY mesalamine 1.2 GM tablet 2.4 g PO DAILY Patient Comments: Chrohn's aspirin [Baby Aspirin] 81 mg Tablet,Chewable 81 mg PO DAILY cholecalciferol (vitamin D3) [Vitamin D3] 25 mcg (1,000 unit) Tablet 25 mcg PO DAILY sulfamethoxazole-trimethoprim [sulfamethoxazole-trimethoprim] 1 TABLET tablet 1 tab PO BID Qty: 14 0RF ondansetron [ondansetron] 4 MG tablet 4 mg PO Q8H PRN PRN (Reason: Nausea) Qty: 10 0RF albuterol sulfate [Proventil HFA] 90 mcg/actuation HFA aerosol inhaler 2 puff inhalation Q4H PRN (Reason: Wheezing) Qty: 8.5 6RF Primary Care Provider: Devon Esteban Referrals: Devon Esteban MD [Primary Care Provider] - 10-14 Days suture removal Disposition Disposition: Home, Self Care Discharge Date/Time: 01/15/23 22:30
--- NOTE | 2023-01-15 21:30 | RAD_ITS ---
EXAM: XR RIGHT TIBIA AND FIBULA, 2 VIEWS CLINICAL INDICATION: injury TECHNIQUE: Frontal and lateral views of the right tibia and fibula. COMPARISON: No relevant prior studies available. FINDINGS: BONES/JOINTS: Unremarkable. No acute fracture. No subluxation. Normal alignment. Preservation of the joint space. No sclerotic or destructive changes observed. SOFT TISSUES: Unremarkable. No soft tissue swelling or gas. No radiopaque foreign body. RAD/Tibia & Fibula 2 Views IMPRESSION: Negative right tibia and fibula x-rays. Electronically Signed: Monty Lou MD at 21:52 EDT ,
[2023-01-15] MEDS: Lidocaine 1% (20 ml mdv) 20 ML Vial 8 ML INFILT (22:04)
[2023-01-15] MEDS: Cephalexin 250 MG Capsule 500 MG PO (22:26)
== END 2023-01-15 22:30 | disposition home or self-care (01) ==
PROVIDERS: Emergency Provider Emergency Medicine; PCP Family Medicine; Visit Provider Emergency Medicine
DX: S81.811A Laceration without foreign body, right lower leg, initial encounter (principal); Z87.891 Personal history of nicotine dependence; W55.22XA Struck by cow, initial encounter; Y93.K9 Activity, other involving animal care; K21.9 Gastro-esophageal reflux disease without esophagitis; Z79.899 Other long term (current) drug therapy
CPT/HCPCS: 12002; 73590; 99284

== ENCOUNTER 2023-07-03 09:30 | Outpatient (RCR) | payer OTHER, SELFPAY ==
--- NOTE | 2023-06-06 15:32 | HP.PTEVAL_ITS ---
Patient's Visit Information Visit Information Visit Information: HEATHER VALDEZ is a 63 year old M referred to Physical Therapy by ANNE MARIE Looney with a diagnosis of LUMBAR L-S RADICULOPATHY. Date of Evaluation: 06/06/23 Physical Therapist: Maykel Andrew, PT, Cert MDT, OCS Visit Plan Frequency: 2x /Week Duration: 4 Weeks Plan: PT INTERVENTIONS LUMBAR FLEXION ,DLS ,POSTURAL EX'S AND MODALITIES ( LOSSING LUMBAR TRACTION) Subjective Subjective: This 63 y/o male presents to physical therapy with lumbar radiculopathy right > left. Patient has had lumbar radiculopathy many years but gets better. But past several weeks symptoms worsen seen Dr Jimenez 2 different times. Patient had no diagnostics recently but 1 year ago at [facility] x- rays showed severe DDD L5-S1 ,Spondylolistheses ,spondylolysis . Patient location of pain right side lumbar to hamstrings to calf to dorsal foot. Symptoms described as throbbing Patient also has appointment with DR Valencia pain management . Aggravating factors walking ,standing ,lifting . Alleviating factors sitting flexion. C/O paresthesia/tingling in legs . Bowel/bowel- . Coughing/sneezing +. Pain affects sleeping. Patient affects QOL and function /job demands. Patient goals to decrease pain. Patient has tried TENS unit. 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 [employer] Pain Right Back: Pain Intensity (Out of 10): 8 Pain Intensity Range: 10 Right Lower Extremity: Pain Intensity (Out of 10): 9 Objective Objective: POSTURE: mild forward posture PALAPTION: tender LS NEURO: c/o paresthesia/tingling legs ,myotomes intact ,reflexes L3-4,L4-5 ,L5-S1 2/3 GAIT: reciprocal pattern MMT: quads/hamstrings 4/5,GTE 4-/5 ,ankle DF 4/5 ,hip flexion 4-/5 LUMBAR ROM: flexion min loss ,extension mod loss pain ,side slides mod loss right side pain FLEXABLITY: hamstrings min tight Special Tests L/S Slump test left side: Negative L/S Slump test right side: Negative L/S Left Straight Leg Raise: Negative L/S Right Straight Leg Raise: Negative Lumbar Standing: Flexion - Mechanical Response: No effect Lumbar Standing: Flexion - Symptoms During Testing: Increases Lumbar Standing: Flexion - Symptoms After Testing: No worse Lumbar Standing: Extension - Mechanical Response: No effect Lumbar Standing: Extension - Symptoms During Testing: Increases Lumbar Standing: Extension - Symptoms After Testing: Worse Lumbar Standing: Right Side Glides - Mechanical Response: No effect Lumbar Standing: Right Side [place] - Symptoms During Testing: Increases Lumbar Standing: Right Side [place] - Symptoms After Testing: Worse Lumbar Standing: Left Side [place] - Mechanical Response: No effect Lumbar Standing: Left Side [place] - Symptoms During Testing: No effect Lumbar Standing: Left Side [place] - Symptoms After Testing: No effect Lumbar Lying: Flexion - Mechanical Response: No effect Lumbar Lying: Flexion - Symptoms During Testing: Decreases Lumbar Lying: Flexion - Symptoms After Testing: Better Balance/Special Test Scores Oswestry Low Back Score: 26 Goals Goal 1:: Patient to be I with HEP. Goal Time Frame: 4-6 Weeks Goal 2:: Patient to demonstrate 50% improvement with less pain and improved function walking/standing Goal Time Frame: 4-6 Weeks Goal 3:: Patient to improve lumbar ROM for function of recovery for job demands Goal Time Frame: 4-6 Weeks Goal 4:: Patient to improve back oswestry score by 5 points or > to improve QOL and job demands Goal Time Frame: 4-6 Weeks Goal 5:: Patient be able to walk and stand further distance with less pain in legs for ADLS and job demands Goal Time Frame: 4-6 Weeks Rehabilitation Potential Physical Therapy Diagnosis: This patient has lumbar radiculopathy R>L leg with stenosis worse with walking ,standing ,better with sitting and flexion worse with positioning and motion testing thus benefit from skilled PT Rehabilitation Potential: Good Anticipated Interventions Patient/Client Instruction: Educate patient on: Condition For the Purpose of:: To decrease pain, To increase ROM, To improve muscle performance and motor function, To improve ability to perform ADL's, To increase tolerance to activity/condition/position, To improve ability of physical actions for home/community/work/leisure, To improve health of tissue, To decrease soft tissue restriction, To increase flexibility/ROM and To prevent re-injury Therapeutic Exercise to Include: Strength training, Body mechanics, Postural training, Flexibilty training, Active ROM and Dynamic Lumbar Stabilization For the Purpose of:: To decrease pain, To increase ROM, To improve muscle performance and motor function, To improve ability to perform ADL's, To increase tolerance to activity/condition/position, To improve ability of physical actions for home/community/work/leisure, To improve health of tissue, To decrease soft tissue restriction, To increase flexibility/ROM, To improve endurance, To prevent re-injury and To improve tolerance to ADL's TENS: Yes IF ES: Yes Cryotherapy (ice pack, ice massage): Yes Thermo therapy (hot pack): Yes Ultrasound (thermal/non thermal): Yes Pelvic traction supine: Yes For the Purpose of:: To decrease pain, To increase ROM, To improve health of tissue, To decrease soft tissue restriction and To increase flexibility/ROM Text: Thank you for the opportunity to evaluate your patient. For Medicare and Medicare HMO plans, please review the plan of care and approve it. It will need to be FAXED BACK to us at [phone] for Medicare purposes. For Medicare only, by signing this I certify the plan of care. Please let me know if there are questions or concerns regarding this plan of care. Physician Signature: Date:
--- NOTE | 2023-09-01 17:43 | HP.PT.NRP ---
Patient Information Patient Information: HEATHER VALDEZ was seen in my office for initial evaluation on 06/06/23. The following Plan of Care was established for this patient: POC Established Initial Frequency: 2x /Week Initial Duration: 4 Weeks Anticipated Interventions Patient/Client Instruction: Educate patient on: Condition For the Purpose of:: To decrease pain, To increase ROM, To improve muscle performance and motor function, To improve ability to perform ADL's, To increase tolerance to activity/condition/position, To improve ability of physical actions for home/community/work/leisure, To improve health of tissue, To decrease soft tissue restriction, To increase flexibility/ROM and To prevent re-injury Therapeutic Exercise to Include: Strength training, Body mechanics, Postural training, Flexibilty training, Active ROM and Dynamic Lumbar Stabilization For the Purpose of:: To decrease pain, To increase ROM, To improve muscle performance and motor function, To improve ability to perform ADL's, To increase tolerance to activity/condition/position, To improve ability of physical actions for home/community/work/leisure, To improve health of tissue, To decrease soft tissue restriction, To increase flexibility/ROM, To improve endurance, To prevent re-injury and To improve tolerance to ADL's TENS: Yes IF ES: Yes Cryotherapy (ice pack, ice massage): Yes Thermo therapy (hot pack): Yes Ultrasound (thermal/non thermal): Yes Pelvic traction supine: Yes For the Purpose of:: To decrease pain, To increase ROM, To improve health of tissue, To decrease soft tissue restriction and To increase flexibility/ROM Last Seen Last Seen: This patient was last seen in our office . Pertinent comments regarding their Physical therapy will appear below: Patient was seen for PT for lumbar radiculopathy with lumbar traction only helping temporarily thus is d/c and seen by DR At this point I will be discontinuing this patient from physical therapy. I would be happy to see this patient again in the future if found appropriate by the physician. Thank you! Maykel Andrew, PT, Cert MDT, OCS Balance/Gait/Functional tests Balance/Special Test Scores Oswestry Low Back Score: 26
== END 2023-07-03 19:00 | disposition home or self-care (01) ==
LOC: PT 09:30
PROVIDERS: PCP Family Medicine; Referring Provider Registered Nurse; Visit Provider Registered Nurse
DX: M54.17 Radiculopathy, lumbosacral region (principal)
CPT/HCPCS: 97012; 97110; 97162; 97530